=== PATIENT | male | born 1960 | race Caucasian/White ===

== ENCOUNTER → 2017-08-08 | Outpatient (CLI) | payer BC | LOC: RAD 07:48 | DX: R05 Cough (principal); R06.00 Dyspnea, unspecified ==

== ENCOUNTER 2018-09-13 08:35 | Observation (INO) | payer OTHER ==
[~2018-09-13] VITALS: Ht 172.7 cm; Wt 104.8 kg
--- NOTE | ~2018-09-13 | D ---
[facility] [place] [address] DISCHARGE SUMMARY Name: NEGRO MERCEDES Room #: 200-I [facility] Vic MKimmy#: [id number] Admission: 09/13/18 Attend Phys: Nsétor Smith Discharge: 09/14/18 Date of : 64 Report #: [id number] THIS REPORT FOR: //name// CC: Harpreet Smith DATE OF SERVICE: 09/14/2018 ADMITTING DIAGNOSES: Coronary artery disease with unstable angina. DISCHARGE DIAGNOSES: 1. Coronary artery disease. 2. Hypertension. 3. Dyslipidemia. DISCHARGE MEDICATIONS: Prasugrel 10 mg daily, aspirin 325 daily, simvastatin 40 daily, lisinopril 10 mg daily, Nexium 40 mg daily, sublingual nitroglycerin p.r.n., omega-3 of 2000 mg b.i.d. PROCEDURES PERFORMED: 1. Left heart catheterization. 2. Percutaneous transluminal coronary angioplasty and stenting of the mid and proximal right coronary artery with YESY stenting. FOLLOWUP: Dr. Smith in 4 weeks. DISCHARGE DIET: [place] [employer] step 1 diet. DISCHARGE ACTIVITY: No heavy lifting for 2 days, then resume normal activities. BRIEF CLINICAL HISTORY: See history and physical in the chart. HOSPITAL COURSE: The patient was admitted to the hospital for elective left heart catheterization. This demonstrated a moderate left circumflex lesion and a high-grade distal, mid RCA and at least 70% proximal RCA. In view of this, he underwent uncomplicated stenting of the distal mid RCA and the proximal RCA without complications or difficulty. YESY stenting was performed in the distal lesion and the restenosed stent proximal to that lesion was redilated with a sculpting balloon. Report noted in the chart. He subsequently remained electrically and hemodynamically stable post-procedure. He was allowed to ambulate without difficulty or complication, is being discharged to home in an [facility] [address] [place] [address] DISCHARGE SUMMARY Name: DARENNEGRO HOOK [id number] Admission: 09/13/18 Attend Phys: Néstor Smith Discharge: 09/14/18 Date of : 64 Report #: [id number] improved and stable condition, to follow up with the previously stated discharge instructions and medications. <ELECTRONICALLY SIGNED> By: Néstor Smith MD 09/15/18 1625 [id number] Néstor Smith MD /nt
--- NOTE | ~2018-09-13 | H ---
[facility] [place] [address] HISTORY AND PHYSICAL Name: NEGRO MERCEDES Room #: 200-I [facility] M.R.#: [id number] Admission: 09/13/18 Attend Phys: Néstor Smith Discharge: Date of : 64 Report #: [id number] THIS REPORT FOR: //name// CC: Harpreet Smith DATE OF SERVICE: 09/13/2018 HISTORY OF PRESENT ILLNESS: The patient is a very pleasant 57-year-old gentleman seen in the office for exertional dyspnea and chest discomfort. Underwent noninvasive assessment that demonstrated a reversible anterolateral wall and lateral wall defect. Echocardiography demonstrated no wall motion abnormalities. There are normal valvular structures. SOCIAL HISTORY, PAST MEDICAL HISTORY, REVIEW OF SYSTEMS: Unchanged from office note. PHYSICAL EXAMINATION: GENERAL: Well-developed, well-nourished, white male resting comfortably, in no acute distress. HEENT: Normocephalic, atraumatic. Pupils are equal, round, reactive to light and accommodation. Extraocular muscles are intact. Sclerae and conjunctivae are anicteric. NECK: JVD is normal. Carotid upstrokes are bilaterally symmetrical. No bruits are heard. No thyromegaly. No lymphadenopathy. LUNGS: Clear to auscultation. No wheezes, rhonchi or crackles. No CVA tenderness. CARDIAC: Demonstrates a regular rhythm. Normal first and second heart sounds. No ventricular or atrial gallops, no rubs noted. No murmurs. No lifts or heaves, PMI normal. ABDOMEN: Soft, nontender, nondistended. Normal bowel sounds. EXTREMITIES: Without cyanosis, clubbing or edema. Distal pulses are intact. DTR symmetrical. NEUROLOGIC: Cranial nerves 2-12 are grossly normal and symmetrical. PSYCHIATRIC: Alert, oriented with normal affect. SKIN: Warm and dry. IMPRESSION AND PLAN: Exertional dyspnea and chest discomfort with an intermediate to high risk perfusion scan. In view of this, cardiac catheterization was recommended. The risks, complications and alternatives to [facility] [place] [address] HISTORY AND PHYSICAL Name: MERCEDESNEGRO MILADYS Room #: 200-I [facility] M.R.#: [id number] Admission: 09/13/18 Attend Phys: Néstor Smith Discharge: Date of : 64 Report #: [id number] cath, angioplasty, conscious sedation were discussed with the patient. He voices understanding and wishes to proceed. <ELECTRONICALLY SIGNED> By: Néstor Smith MD 09/13/18 1259 0957 1052 Néstor Smith MD /nt
--- NOTE | ~2018-09-13 | CATHLAB ---
[facility] [address] [place] [address] INVASIVE PROCEDURE REPORT Name: NEGRO MERCEDES Room #: 200-I [facility] IN ..#: [id number] Admission: 09/13/18 Attend Phys: Néstor Chicas Discharge: 09/14/18 Date of : 64 Date of Service: 09/16/18 1254 Report #: [id number] THIS REPORT FOR: //name// APPROVED REPORT Study performed: 09/13/2018 09:08:00 Patient Details Patient Status: Out-Patient Room #: The patient is a 57 year-old male Event Personnel Néstor Smith Linotype Operator, Charito Corado, CIVIL CLERK Monitor, Devon Lane RN RN, Aroldo Lopez Scrub Procedures Performed Left Heart Cath w/or w/o Coronaries [id number] [facility] YESY Place w/wo Plasty Single PDA [id number] supervision of conscious sedation Indication Positive stress test, Chest pain Procedure Narrative The Right Groin^ was infiltrated with 1% Lidocaine subcutaneous anesthesia. A 4FR MULTIPACK JR 4/JL 4/PIG #[id number] sheath was inserted into the RFA^. Coronary angiography was performed using coronary diagnostic catheters. The right coronary system was accessed and visualized with a JR4 catheter. The left coronary system was accessed and visualized with a JL4 catheter. The left ventricle was accessed and visualized with a PIGTAIL catheter. Left ventricular/Aortic Valve gradient assessed via catheter pullback. Closure device was deployed with a 6 Fr MYNXGRIP 6/7F #[id number]. The patient tolerated the procedure well and there were no complications associated with the procedure. There was no hematoma. Intraoperative Conscious Sedation Sedation start time: 10.03 Case end Time: 10.50 Versed mg Fluoro Time: 11.25 minutes Dose: DAP 77898.00 cGycm2 1844 mGy Contrast Type and Amount: Omnipaque 120 ml [facility] [place] [address] INVASIVE PROCEDURE REPORT Name: NEGRO MERCEDES Room #: 200-I [facility] IN [facility].#: [id number] Admission: 09/13/18 Attend Phys: Néstor Chicas Discharge: 09/14/18 Date of : 64 Date of Service: 09/16/18 1254 Report #: [id number] Coronary Angiography The patient's coronary anatomy is right dominant. Diagnostic Cath Left Main Left main is of normal origin and caliber bifurcates that anterior descending left circumflex free of significant stenotic lesions LAD Moderate caliber type II vessel which courses in the anterior interventricular sulcus. First diagonal branches free of high-grade disease as is the first septal patient accounts specialist. The LAD proper then continues with only luminal irregularities terminating as a bifurcating vessel at the apex. Diagonal 1 VESSEL without significant obstructive lesions noted Circumflex Moderate to large caliber vessel which in its proximal course is an eccentric 50-60% lesion. Did then trifurcates into a terminal portion of the circumflex and a bifurcating marginal branch with only luminal irregularities in these branches OM1 Small to moderate caliber vessel without significant high-grade stenosis noted OM2 Small-caliber vessel without significant lesions only luminal irregularities are seen Right Coronary Moderate caliber vessel normal origin procedures in the AV groove posteriorly giving rise to small RV marginal branches. Prior to the origin of these marginal branches is a eccentric 75-80% lesion noted. The vessel continues on and gives rise to posterior descending artery which is moderate in size and has a 90-95% lesion at its origin. R PDA Moderate caliber vessel with a high-grade lesion at its origin involving the RCA proper junction. Left Ventriculography Left Ventriculography was not performed. Hemodynamics The aortic pressure is 164/70 mmHg with a mean of 99 mmHg. The left ventricular pressure is 173/14 mmHg with a mean of mmHg. The left ventricular end diastolic pressure is 24 mmHg. There was no gradient across the aortic valve upon pullback. Pullback from the left ventricle to the aorta revealed no gradient across the aortic valve. PCI Technique Following the termination of intervention as the course the sheath was upsized the 6 [place]. An standard protocol ensued. Utilizing [facility] [address] [place] [address] INVASIVE PROCEDURE REPORT Name: NEGRO MERCEDES Room #: 200-I DIS IN M.R.#: [id number] Admission: 09/13/18 Attend Phys: Néstor Chicas Discharge: 09/14/18 Date of : 64 Date of Service: 09/16/18 1254 Report #: [id number] standard JR4 guide was cannulated with the right coronary ostium. A 014 wire was advanced distally into the posterior descending artery. A 2.5 mm drug-eluting stent was in position across the lesion and deployed at 18 hyacinth. The vessel is widely patent at this juncture with flow being brisk. Midportion of the stent had not fully deployed and a noncompliant balloon lumen was then taken and inflated to optimally expand the stent. No intimal disruption or distal embolization was identified. At this point in time the proximal lesion appeared to be more significant and utilizing a 3.0 mm YESY stent position proximally and dilated to 18 hyacinth. The vessel was patent and the interior of the stent that did not appear fully deployed. Noncompliant balloon was then brought into the stent and dilated to 20 hyacinth with excellent result. Flow is brisk KATELYN-3. No loss of side branch distal embolization was noted. Patient tolerated procedure well. PCI Technique Lesion Percutaneous coronary intervention was performed on the right posterior descending artery. A LAUNCHER 6FR JR 4 #[id number] Guide Catheter was used to engage the ostium. A Luge Wire (J) .014 X 182CM #[id number] Interventional Guidewire was used to cross the lesion. STENT DEPLOYMENT A stent RESOLUTE KOLTON OTW 2.5 X 18 #[id number] was inserted and inflated up to 16.00atm for 23seconds. Additional Inflation: 18.00atm for 11seconds. POST STENT DEPLOYMENT BALLOON DILATION A Balloon catheter TREK NC OTW 2.75 X 12 #[id number] was inserted and inflated up to 16.00atm for 14seconds. Additional Inflation: 20.00atm for 24seconds. PCI Technique Lesion 2 Percutaneous Coronary Intervention was performed on the mid right coronary artery. A LAUNCHER 6FR JR 4 #[id number] Guide Catheter was used to engage the ostium. A Luge Wire (J) .014 X 182CM #[id number] Interventional Guidewire was used to cross the lesion. Stent Deployment A stent RESOLUTE KOLTON OTW 3.0 X 22 #[id number] was inserted and inflated up to 14.00atm for 15seconds. Post Stent Deployment Balloon Dilation A Balloon catheter TREK NC RX 3.25 X 12 #[id number] was inserted and inflated up to 20.00atm for 15seconds. Additional Inflation: 20.00atm for 12seconds. [facility] [place] [address] INVASIVE PROCEDURE REPORT Name: NEGRO MERCEDES Room #: 200-I [facility] IN ..#: [id number] Admission: 09/13/18 Attend Phys: Néstor Chicas Discharge: 09/14/18 Date of : 64 Date of Service: 09/16/18 1254 Report #: [id number] Conclusion 1. Coronary disease, severe, two-vessel 2. Abnormal hemodynamics with elevated liver ventricular end-diastolic pressures 3. Successful percutaneous revascularization with YESY stenting of the proxima PDA and RCA juncture as well as the proximal RCA Recommendations Cardiac Risk Reduction Program Medical Therapy Medications Administered Prasugrel <ELECTRONICALLY SIGNED> By: Néstor Smith MD 09/16/18 1254 53 Néstor Smith MD /INF
[2018-09-13 09:07] VITALS: BP 147/76
[2018-09-13] MEDS ORDERED: LISINOPRIL10 MG PO (09:16)
[2018-09-13] MEDS ORDERED: ASPIR 8181 MG PO (09:17)
[2018-09-13] MEDS ORDERED: SIMVASTATIN40 MG PO (09:17)
[2018-09-13] MEDS ORDERED: NEXIUM40 MG PO (09:17)
[2018-09-13] MEDS ORDERED: FISH OIL 1,001000 M2 PO (09:18)
[2018-09-13 11:26] VITALS: BP 143/73
[2018-09-13 12:30] LABS: HEMATOCRIT 41.7 % (42.0-52.0); HEMOGLOBIN 14.5 gm/dL (14.0-18.0); MCH 29.3 pg (26.0-34.0); MCHC 34.8 g/dL (28.0-37.0); RBC 4.97 mil/uL (4.50-6.00); RDW 13.5 % (10.5-14.5)
[2018-09-13 12:41] LABS: CALCIUM 8.6 mg/dL (8.5-10.1); CREATININE 0.7 mg/dL (0.7-1.3); POTASSIUM 3.6 mmol/L (3.5-5.1)
[2018-09-13] MEDS ORDERED: EFFIENT10 MG PO (16:31)
[2018-09-13] MEDS ORDERED: NITROGLYCERIN0.4 MG SUBLING (16:33)
[2018-09-13 19:25] VITALS: BP 127/67
[2018-09-14 00:10] VITALS: BP 143/63
[2018-09-14 03:38] VITALS: BP 132/59
[2018-09-14 04:35] LABS: HEMOGLOBIN 14.1 gm/dL (14.0-18.0); MCH 28.9 pg (26.0-34.0); MCHC 34.4 g/dL (28.0-37.0); MCV 83.9 fL (80.0-100.0); RBC 4.88 mil/uL (4.50-6.00); RDW 13.1 % (10.5-14.5); WBC 9.6 thou/uL (4.0-11.0)
[2018-09-14 08:00] VITALS: BP 140/62
[2018-09-14 12:13] VITALS: BP 140/62
== END 2018-09-14 13:12 | disposition home or self-care (01) ==
LOC: CATH 08:35 → 2N 10:25 → ENTRNSPT 15:10 → 2N 09-14 13:12
PROVIDERS: Internal Medicine
DX: I25.10 Atherosclerotic heart disease of native coronary artery without angina pectoris (principal); I10 Essential (primary) hypertension; E78.5 Hyperlipidemia, unspecified; R06.00 Dyspnea, unspecified; Z23 Encounter for immunization

== ENCOUNTER → 2020-05-19 | Outpatient (CLI) | payer OTHER ==
[~2020-05-19] MED LIST: ASPIR 8181 MG PO; EFFIENT10 MG PO; FISH OIL 1,001000 M2 PO; LISINOPRIL10 MG PO; NEXIUM40 MG PO; NITROGLYCERIN0.4 MG SUBLING; SIMVASTATIN40 MG PO
== END ==
LOC: SJCVCIMAG 07:23
PROVIDERS: ATTEND Internal Medicine
DX: R00.0 Tachycardia, unspecified (principal); R00.1 Bradycardia, unspecified; I25.10 Atherosclerotic heart disease of native coronary artery without angina pectoris; I10 Essential (primary) hypertension; E78.5 Hyperlipidemia, unspecified; Z87.891 Personal history of nicotine dependence; Z79.899 Other long term (current) drug therapy

== ENCOUNTER → 2021-07-26 | Outpatient (CLI) | payer BC ==
--- NOTE | 2021-08-04 09:52 | SLE ---
[facility] [place] [address] POLYSOMNOGRAPHY STUDY Name: NEGRO MERCEDES Room #: REG [facility].#: [id number] Admission: 07/26/21 Attend Phys: Yung Bradford MD Discharge: Date of : 64 Report #: [id number] THIS REPORT FOR: cc: Harpreet Merida MD, Christopher B. MD Khan, Aman U. MD ~ cc: Raji Stephenson MD DATE OF SERVICE: 07/26/2021 SLEEP STUDY ATTENDING PHYSICIAN: Dr. Raji Stephenson The patient is a 60-year-old who weighs 240 pounds with a BMI of 36.8. The patient's Thomaston score was 15. The patient has a history of sleep apnea. The patient has been on CPAP at 13 cm of water. The patient was referred for further evaluation of hypersomnia and another titration study was ordered. During the night study, the patient spent 446 minutes in bed and slept for 490 minutes with a sleep efficiency of 94%. Sleep latency was 1.4 minutes with a REM latency of 36.5 minutes. Sleep architecture showed normal stage I and stage II sleep, increased slow wave and normal REM sleep. EKG monitoring revealed an average heart rate of 87 beats per minute. No sustained observed. PLMS were seen at index of 63 per hour and 19 per hour caused EEG arousals. The patient was started on CPAP at 13 cm water tight up to 16 cm of water. At the final pressure, the patient slept for 307 minutes. The patient's AHI was reduced to 2.1 per hour. The patient had a supine as well as REM sleep. Oxygen saturations remained above 90%. IMPRESSION: 1. Sleep apnea diagnosed by previous sleep study. 2. Severe PLMS. RECOMMENDATIONS: 1. CPAP at 16 cm water completely eliminated the patient's sleep apnea and should be used on a nightly basis. 2. Follow up in 4-6 weeks to assess compliance with CPAP and to document clinical improvement. 3. Weight loss is advised. 4. Avoid RAILROAD CAR INS[employer]OR depressants. 5. Cautioned regarding driving until symptoms of sleep apnea resolve with the current CPAP pressure. [facility] [address] [place] [address] POLYSOMNOGRAPHY STUDY Name: DARENNEGRO HOOK [id number] Admission: 07/26/21 Attend Phys: Yung Bradford MD Discharge: Date of : 64 Report #: [id number] The patient has severe PLMS and resulting in an increased arousal index of 19.6 per hour. The patient should be further evaluated for symptoms of restless legs during the day and if present, it can be treated with dopaminergic agonist agents. <ELECTRONICALLY SIGNED> By: Yung Bradford MD 08/04/21 0952 1620 1739 Yung Bradford MD /nt
== END ==
LOC: SLEEPLAB 09:55
PROVIDERS: ATTEND Internal Medicine Critical Care Medicine
DX: Z01.812 Encounter for preprocedural laboratory examination (principal); G47.33 Obstructive sleep apnea (adult) (pediatric); Z20.822 Contact with and (suspected) exposure to COVID-19